=== PATIENT | male | born 1950 | race Caucasian/White ===

== ENCOUNTER 2021-10-23 00:06 | Emergency (ER) | payer MEDICARE, BC, SELFPAY ==
[2021-10-23 00:07] VITALS: BP 138/75; PULSE 84; RESP 17; TEMP 36.6; O2SAT 98; BMI 41.1
[2021-10-23 00:19] VITALS: BP 115/65; PULSE 86; RESP 18; O2SAT 96
--- NOTE | 2021-10-23 00:51 | ED.RN ---
Blood glucose 38. Dr. Arenas notified, order given for d10 bolus.
[2021-10-23] MEDS: Dextrose 10%-Water 250 ML 999 ML IV (00:54)
[2021-10-23 01:06] LABS: Bedside Glucose 38 mg/dL (74-106)
--- NOTE | 2021-10-23 01:19 | EX.ED.DYSGE1 ---
HPI History of Present Illness Chief Complaint: Hypoglycemia Informant: EMS Narrative Narrative: Patient brought in by EMS from home for altered mental status found to have hypoglycemia blood glucose of 40s. He is a diabetic on oral medicines. Patient status post D10 by EMS with improvement of symptoms. During my evaluation he denies any symptoms no recent cough no recent vomiting diarrhea no urinary symptoms. He is unsure if he took his medications today. He states he did not eat much today. Initially thought spouse was dementia called EMS, however later stated his spouse called patient's father who called EMS. Patient reports he has been on his 2 diabetic medications for years. No previous similar events in the past. Confirms he is on glipizide and Actos. Typically takes these in the morning, unclear if he took it yesterday morning. Prior similar symptoms: No PFSH PFSH Medical History Anxiety Cancer Depression Diabetes Former smoker GERD (gastroesophageal reflux disease) Prostate cancer Home Medications duloxetine 20 mg capsule,delayed release 40 mg PO DAILY 10/23/21 [History Last Taken Unknown] glipizide 10 mg tablet 10 mg PO DAILY 10/23/21 [History Last Taken Unknown] lisinopril 20 mg-hydrochlorothiazide 25 mg tablet 1 tab PO DAILY 10/23/21 [History Last Taken Unknown] omeprazole 20 mg capsule,delayed release 20 mg PO DAILY 10/23/21 [History Last Taken Unknown] pioglitazone 15 mg tablet (Actos) 15 mg PO DAILY 10/23/21 [History Last Taken Unknown] prednisolone acetate 1 % eye drops,suspension 1 drp RIGHT EYE DAILY 10/23/21 [History Last Taken Unknown] Allergy/AdvReac Type Severity Reaction Status Date / Time Penicillins AdvReac Hives Verified 10/23/21 00:20 Social History Smoking Status: Former smoker ROS ROS ED Constitutional Constitutional ED: Denies chills, fever(s) or sweats Eyes Eyes: Denies change in vision ENT ENT ED: Denies dysphagia or sore throat Cardiovascular Cardiovascular: Denies chest pain, leg edema, palpitations or racing heartbeat Respiratory/Chest Respiratory/Chest: Denies cough, dyspnea or dyspnea on exertion Gastrointestinal Gastrointestinal: Denies abdominal pain, diarrhea, nausea or vomiting Genitourinary Genitourinary ED: Denies dysuria, hematuria or urinary frequency Musculoskeletal Musculoskeletal: Denies back pain, extremity pain or neck pain Integumentary Denies rash or wounds Neurologic Neurologic: Denies headache(s), paresthesias or weakness EXAM Physical Exam Const Vital Signs: 10/23/21 00:07 10/23/21 00:15 10/23/21 00:19 Temperature 97.9 F Temperature Source Oral Pulse Rate 84 86 Respiratory Rate 17 18 Respiratory Pattern Normal Blood Pressure 138/75 H 115/65 Blood Pressure Mean 96 81 Pulse Ox 98 96 Oxygen Delivery Method Room Air Room Air 10/23/21 04:14 10/23/21 06:00 Temperature Temperature Source Pulse Rate 109 H 104 H Respiratory Rate 20 H 15 Respiratory Pattern Blood Pressure 116/57 L 175/107 H Blood Pressure Mean 76 129 Pulse Ox 97 95 Oxygen Delivery Method Room Air Room Air Positive well nourished and well developed General Appearance ED: well developed and NAD HEENT Reports moist mucous membranes normocephalic and atraumatic Eyes PERRL, EOMs intact bilaterally and conjunctivae normal General Eye ED: Yes normal appearance of both eyes Neck no lymphadenopathy and supple General: Negative for tenderness Chest Wall Chest: Negative for tenderness Resp normal respiratory effort and normal air movement Effort and Inspection: symmetric chest movement; Negative for respiratory distress Cardio regular rate, regular rhythm and no murmurs Peripheral Pulses: pulses 2+ throughout GI normal to inspection, nondistended, normoactive bowel sounds and non-tender Palpation: Negative for guarding or rebound tenderness present Back/Spine no CVA tenderness and no thoracic nor lumbar tenderness Extremity normal to inspection General Extremety ED: Negative for edema or tenderness General Extremity: Negative for edema Neuro oriented x3 and no sensory deficits noted Sensorium / Orientation: awake and alert Skin no rashes or lesions noted and no wounds MDM MDM MDM Narrative Medical decision making narrative: Patient alert and oriented x3 feeling better and normal self on my evaluation. I ordered for regular diet. Ordered for glucose checks every 30 minutes for evaluation. Initial recheck of glucose was 38, his order for additional D10 bolus along with his oral meals. We will continue to monitor. 0200: Patient finished a whole sandwich was given a D10 bolus recheck glucose was initially 120, then recheck trending down to 70. We will continue D10 at 50 mL/h, will check labs and urine. Patient reports he does not typically take his diabetic medicines in the mornings unclear was taken this morning however none was taken this evening. He takes it once a day. 0535: Patient maintaining on D10 at 50 cc/h. Glucose fluctuating in the 70 range, 1 episode at 65 where he was given juice and a cookie. However even with that glucose in the 70 range. Last check at 73. At this time we will turn off the D10 and see if his glucose will drop down significantly with him requiring the continue D10 infusion. 0600: Off the D10 fluids, recheck blood sugar is 72. Clinically remained stable. We will plan to recheck additional time for stability. 0630: Glucose checks 67. He has been off the D10 for over an hour. Clinically stable. I do feel his glucose has stabilized. No significant drops. He will be given juice just to maintain. He will hold his diabetic medications today. He will return if any worsening symptoms. All questions were answered. Lab Data Attestation: I reviewed the patient's lab results. Labs: Laboratory Results - last 24 hr 10/23/21 10/23/21 10/23/21 00:47 01:23 01:57 WBC RBC Hgb Hct MCV MCH MCHC RDW Std Deviation RDW Coeff of Payal Plt Count MPV Immature Gran % (Auto) Neut % (Auto) Lymph % (Auto) [place] % (Auto) Eos % (Auto) Baso % (Auto) Absolute Neuts (auto) Absolute Lymphs (auto) Nucleated RBC % Sodium Potassium Chloride Carbon Dioxide Anion Gap BUN Creatinine Estim Creat Clear Calc Est GFR (MDRD) Af Amer Est GFR (MDRD) Non-Af BUN/Creatinine Ratio Glucose Calcium Urine Color Urine Clarity Urine pH Ur Specific [place] Urine Protein Urine Glucose (UA) Urine Ketones Urine Occult Blood Urine Nitrite Urine Bilirubin Urine Urobilinogen Ur Leukocyte Esterase Urine RBC Urine WBC Ur Squamous Epith Cells Urine Bacteria Urine Mucus POC Glucose 38 L* 120 H 70 L 10/23/21 10/23/21 10/23/21 02:05 02:05 02:10 WBC 7.3 RBC 3.80 L Hgb 14.1 Hct 41.4 MCV 108.9 H MCH 37.1 H MCHC 34.1 RDW Std Deviation 55.5 H RDW Coeff of Payal 13.6 Plt Count 139 L MPV 10.5 Immature Gran % (Auto) 0.500 Neut % (Auto) 82.2 H Lymph % (Auto) 8.5 L [place] % (Auto) 7.4 Eos % (Auto) 1.0 Baso % (Auto) 0.4 Absolute Neuts (auto) 6.0 Absolute Lymphs (auto) 0.62 L Nucleated RBC % 0 Sodium 136 Potassium 3.1 L Chloride 96 L Carbon Dioxide 30.0 Anion Gap 10 BUN 14 Creatinine 0.76 Estim Creat Clear Calc 67.93 Est GFR (MDRD) Af Amer 128 Est GFR (MDRD) Non-Af 106 BUN/Creatinine Ratio 18.3 Glucose 78 Calcium 8.8 Urine Color Yellow Urine Clarity Clear Urine pH 6.5 Ur Specific [place] 1.010 Urine Protein Negative Urine Glucose (UA) Normal Urine Ketones 5 H Urine Occult Blood Negative Urine Nitrite Negative Urine Bilirubin Negative Urine Urobilinogen 8 H Ur Leukocyte Esterase Negative Urine RBC 0 SEEN Urine WBC 0 SEEN Ur Squamous Epith Cells 0 SEEN Urine Bacteria 0 SEEN Urine Mucus 0 SEEN POC Glucose 10/23/21 10/23/21 10/23/21 02:29 03:01 03:34 WBC RBC Hgb Hct MCV MCH MCHC RDW Std Deviation RDW Coeff of Payal Plt Count MPV Immature Gran % (Auto) Neut % (Auto) Lymph % (Auto) [place] % (Auto) Eos % (Auto) Baso % (Auto) Absolute Neuts (auto) Absolute Lymphs (auto) Nucleated RBC % Sodium Potassium Chloride Carbon Dioxide Anion Gap BUN Creatinine Estim Creat Clear Calc Est GFR (MDRD) Af Amer Est GFR (MDRD) Non-Af BUN/Creatinine Ratio Glucose Calcium Urine Color Urine Clarity Urine pH Ur Specific [place] Urine Protein Urine Glucose (UA) Urine Ketones Urine Occult Blood Urine Nitrite Urine Bilirubin Urine Urobilinogen Ur Leukocyte Esterase Urine RBC Urine WBC Ur Squamous Epith Cells Urine Bacteria Urine Mucus POC Glucose 72 L 65 L 76 10/23/21 10/23/21 10/23/21 04:08 04:48 05:29 WBC RBC Hgb Hct MCV MCH MCHC RDW Std Deviation RDW Coeff of Payal Plt Count MPV Immature Gran % (Auto) Neut % (Auto) Lymph % (Auto) [place] % (Auto) Eos % (Auto) Baso % (Auto) Absolute Neuts (auto) Absolute Lymphs (auto) Nucleated RBC % Sodium Potassium Chloride Carbon Dioxide Anion Gap BUN Creatinine Estim Creat Clear Calc Est GFR (MDRD) Af Amer Est GFR (MDRD) Non-Af BUN/Creatinine Ratio Glucose Calcium Urine Color Urine Clarity Urine pH Ur Specific [place] Urine Protein Urine Glucose (UA) Urine Ketones Urine Occult Blood Urine Nitrite Urine Bilirubin Urine Urobilinogen Ur Leukocyte Esterase Urine RBC Urine WBC Ur Squamous Epith Cells Urine Bacteria Urine Mucus POC Glucose 79 77 73 L 10/23/21 06:03 WBC RBC Hgb Hct MCV MCH MCHC RDW Std Deviation RDW Coeff of Payal Plt Count MPV Immature Gran % (Auto) Neut % (Auto) Lymph % (Auto) [place] % (Auto) Eos % (Auto) Baso % (Auto) Absolute Neuts (auto) Absolute Lymphs (auto) Nucleated RBC % Sodium Potassium Chloride Carbon Dioxide Anion Gap BUN Creatinine Estim Creat Clear Calc Est GFR (MDRD) Af Amer Est GFR (MDRD) Non-Af BUN/Creatinine Ratio Glucose Calcium Urine Color Urine Clarity Urine pH Ur Specific [place] Urine Protein Urine Glucose (UA) Urine Ketones Urine Occult Blood Urine Nitrite Urine Bilirubin Urine Urobilinogen Ur Leukocyte Esterase Urine RBC Urine WBC Ur Squamous Epith Cells Urine Bacteria Urine Mucus POC Glucose 72 L Discharge Plan Triage Chief Complaint: Hypoglycemia ED Provider: Clayton Arenas Dx/Rx/DC Orders Clinical Impression: Hypoglycemia due to type 2 diabetes mellitus, Transient confusion, Acute hypokalemia Instructions: ED Hypoglycemia Oral Diabetic ... Prescriptions: No Action pioglitazone [Actos] 15 mg Tablet 15 mg PO DAILY glipizide 10 mg tablet 10 mg PO DAILY Label Comments: TAKE 1 TABLET DAILY prednisolone acetate 1 % drops,suspension 1 drp RIGHT EYE DAILY Label Comments: PUT 1 DROP INTO RIGHT EYE EVERY DAY omeprazole [Prilosec] 20 mg Capsule,Delayed Release(Dr/Ec) 20 mg PO DAILY lisinopril-hydrochlorothiazide 20-25 mg tablet 1 tab PO DAILY Label Comments: TAKE 1 TABLET DAILY duloxetine 20 mg capsule,delayed release(DR/EC) 40 mg PO DAILY Label Comments: TAKE 2 CAPSULES BY MOUTH EVERY DAY Primary Care Provider: Popeye Erazo Referrals: Popeye Erazo MD [Primary Care Provider] - Activity Restrictions/Additional Instructions: Do not take your diabetic medications today. Monitor symptoms. Return if any worsening symptoms.
[2021-10-23 01:46] LABS: Bedside Glucose 120 mg/dL (74-106)
[2021-10-23] MEDS: Dextrose 10%-Water 250 ML 50 ML IV (02:14)
[2021-10-23 02:16] LABS: Bedside Glucose 70 mg/dL (74-106)
[2021-10-23 02:17] LABS: Absolute Lymphocyte Count 0.62 X10^3/uL (0.83-4.51); Basophil# 0.03 X10^3/uL; Basophil% 0.4 % (0-1); Eosinophil# 0.07 X10^3/uL; Hematocrit 41.4 % (40-54); Hemoglobin 14.1 g/dL (13.0-16.5); Lymphocyte # 0.62 X10^3/ul (0.83-4.51); Lymphocyte % 8.5 % (19-41); Mean Corp Hgb Conc 34.1 g/dL (32-36); Mean Corpuscular Hgb 37.1 pg (27.0-32.0); Mean Corpuscular Volume 108.9 fL (80-94); Mean Platelet Vol. 10.5 fl (6.2-12.0); Monocyte# 0.54 X10^3/uL; Monocyte% 7.4 % (0-10); NRBC Flagged by Analyzer 0 % (0-5); Neutrophil # 6.01 X10^3/uL (2.7-7.7); Neutrophil % 82.2 % (47-70); Platelet Count 139 K/mm3 (150-450); RBC Distribution Width CV 13.6 % (11.6-14.6); RBC Distribution Width SD 55.5 fl (35.1-43.9); White Blood Count 7.3 K/mm3 (4.4-11.0)
[2021-10-23 02:20] LABS: Bacteria 0 SEEN /hpf (None Seen); Color, Urine Yellow (Yellow); Glucose, Dipstick Normal (Normal); Ketone-Dipstick 5 mg/dl (Negative); Leukocyte Esterase-Dipstick Negative /ul (Negative); Mucous, Urine 0 SEEN /hpf (<or=2+); Nitrite-Dipstick Negative (Negative); Occult Blood-Urine Negative /ul (Negative); Protein-Dipstick Negative (Negative); Red Blood Cells-Urine 0 SEEN /hpf (0-5); Squamous Epithelial Cells - UA 0 SEEN /hpf (0-5); Urine Bilirubin Dipstick Negative (Negative); Urine Clarity Clear (Clear); Urine Urobilinogen 8 mg/dl (Normal); Urine pH 6.5 (5.0 - 8.0); White Blood Cells 0 SEEN /hpf (0-5)
[2021-10-23 02:30] LABS: Anion Gap 10 (5-15); BUN 14 mg/dL (7-18); BUN/Creat Ratio 18.3 RATIO (10-20); Calcium,Total 8.8 mg/dL (8.5-10.1); Chloride 96 mmol/L (98-107); Creatinine, Serum 0.76 mg/dL (0.70-1.30); EST Glomerular Filtration Rate 106 mL/min (>60); Est Glom Filt Rate - Afr Amer 128 mL/min (>60); Estimated Creatinine Clearance 67.93 ml/min; Glucose 78 mg/dL (74-106); Potassium 3.1 mmol/L (3.5-5.1); Sodium Level 136 mmol/L (136-145)
[2021-10-23 02:51] LABS: Bedside Glucose 72 mg/dL (74-106)
[2021-10-23] MEDS: Potassium Chloride Oral Tablet 20 MEQ 40 MEQ PO (02:59)
[2021-10-23 03:21] LABS: Bedside Glucose 65 mg/dL (74-106)
[2021-10-23 03:55] LABS: Bedside Glucose 76 mg/dL (74-106)
[2021-10-23 04:14] VITALS: BP 116/57; PULSE 109; RESP 20; O2SAT 97
[2021-10-23 04:30] LABS: Bedside Glucose 79 mg/dL (74-106)
[2021-10-23 05:11] LABS: Bedside Glucose 77 mg/dL (74-106)
[2021-10-23 05:51] LABS: Bedside Glucose 73 mg/dL (74-106)
[2021-10-23 06:00] VITALS: BP 175/107; PULSE 104; RESP 15; O2SAT 95
[2021-10-23 06:25] LABS: Bedside Glucose 72 mg/dL (74-106)
[2021-10-23 06:50] LABS: Bedside Glucose 67 mg/dL (74-106)
[2021-10-23 06:54] VITALS: BP 170/82; PULSE 104; RESP 18; O2SAT 97
== END 2021-10-23 07:19 | disposition home or self-care (01) ==
PROVIDERS: Emergency Provider Emergency Medicine; PCP Family Medicine; Visit Provider Emergency Medicine
DX: E11.649 Type 2 diabetes mellitus with hypoglycemia without coma (principal); Z79.84 Long term (current) use of oral hypoglycemic drugs; E87.6 Hypokalemia; K21.9 Gastro-esophageal reflux disease without esophagitis; F41.9 Anxiety disorder, unspecified; F32.A Depression, unspecified; Z87.891 Personal history of nicotine dependence; Z79.899 Other long term (current) drug therapy
CPT/HCPCS: 80048; 81001; 82962; 85025; 96360; 99285